=== PATIENT | female | born 1965 | race Caucasian/White ===

== ENCOUNTER → 2017-07-14 | Outpatient (CLI) | payer MEDICAID ==
[~2017-07-14] MED LIST: ACCUNEB SO1.25 MG/1 INH; ATIVAN1 MG PO; AZITHROMYCIN 2250 MG PO; FLOMAX0.4 MG PO; HYDROCODON-ACE1 EAC7 PO; HYDROCODONE-AP1 EAC6 PO; IBUPROFEN 400400 M2 PO; IBUPROFEN 800800 M1 PO; INVEGA 3 MG3 MG PO; LEVAQUIN 500 M500 MG PO; LOTRISONE CREAM15 GM TP; MEDROLDOSEPACK PO; NEURONTIN 300300 M1 PO; PALIPERIDONE E1.5 MG; PROAIR HFA8.5 GM INH; PROMETHAZINE/C118 ML PO; ROBAXIN 750 MG750 M1 PO; ROBAXIN500 MG PO; ROPINIROLE HCL2 MG; VISTARIL 25 MG25 M1 PO; ZOFRAN ODT4 M1 PO; ZPAK PO
== END ==
LOC: M.RAD 06-19 10:40 → M.ULTRA 07-08 09:00 → M.RAD 09:58
DX: N60.22 Fibroadenosis of left breast (principal)

== ENCOUNTER 2018-02-01 18:44 | Emergency (ER) | payer MEDICAID ==
[~2018-02-01] VITALS: Ht 157.5 cm; Wt 61.2 kg
[~2018-02-01 18:44] MED LIST changes: -INVEGA 3 MG3 MG PO; -PALIPERIDONE E1.5 MG; -ROBAXIN 750 MG750 M1 PO; -ROBAXIN500 MG PO; -ROPINIROLE HCL2 MG
[2018-02-01] MEDS ORDERED: PALIPERIDONE E1.5 MG (19:00)
[2018-02-01] MEDS ORDERED: ROPINIROLE HCL2 MG (19:01)
[2018-02-01] MEDS ORDERED: ROBAXIN500 MG PO (20:01)
[2018-02-01 20:09] VITALS: BP 141/61
== END 2018-02-01 20:11 | disposition home or self-care (01) ==
LOC: M.ERS 18:44
DX: S16.1XXA Strain of muscle, fascia and tendon at neck level, initial encounter (principal); J44.9 Chronic obstructive pulmonary disease, unspecified; E78.00 Pure hypercholesterolemia, unspecified; F41.9 Anxiety disorder, unspecified; Z88.0 Allergy status to penicillin; Z88.8 Allergy status to other drugs, medicaments and biological substances; X58.XXXA Exposure to other specified factors, initial encounter; Y93.89 Activity, other specified; Y92.89 Other specified places as the place of occurrence of the external cause; Y99.8 Other external cause status

== ENCOUNTER 2018-02-21 15:21 | Emergency (ER) | payer MEDICAID ==
[~2018-02-21] VITALS: Ht 157.5 cm; Wt 68.0 kg
[~2018-02-21 15:21] MED LIST changes: +PALIPERIDONE E1.5 MG; +ROBAXIN500 MG PO; +ROPINIROLE HCL2 MG
[2018-02-21] MEDS ORDERED: INVEGA 3 MG3 MG PO (16:27)
[2018-02-21] MEDS ORDERED: ROBAXIN 750 MG750 M1 PO (16:27)
[2018-02-21 16:59] VITALS: BP 144/92
== END 2018-02-21 16:59 | disposition home or self-care (01) ==
LOC: M.ERS 15:21
DX: S29.012A Strain of muscle and tendon of back wall of thorax, initial encounter (principal); Z76.0 Encounter for issue of repeat prescription; F17.200 Nicotine dependence, unspecified, uncomplicated; F31.9 Bipolar disorder, unspecified; F41.9 Anxiety disorder, unspecified; E78.00 Pure hypercholesterolemia, unspecified; J44.9 Chronic obstructive pulmonary disease, unspecified; Z88.4 Allergy status to anesthetic agent; Z88.8 Allergy status to other drugs, medicaments and biological substances; Z88.0 Allergy status to penicillin; Z90.89 Acquired absence of other organs; X58.XXXA Exposure to other specified factors, initial encounter; Y92.89 Other specified places as the place of occurrence of the external cause; Y93.89 Activity, other specified; Y99.8 Other external cause status

== ENCOUNTER 2018-05-11 14:52 | Emergency (ER) | payer MEDICAID ==
[~2018-05-11] VITALS: Ht 157.5 cm; Wt 61.2 kg
[~2018-05-11 14:52] MED LIST changes: +INVEGA 3 MG3 MG PO; +ROBAXIN 750 MG750 M1 PO
[2018-05-11] MEDS ORDERED: TRAZODONE 150150 M1 PO (15:04)
[2018-05-11] MEDS ORDERED: KEFLEX500 M1 PO (15:26)
[2018-05-11 15:41] VITALS: BP 132/87
== END 2018-05-11 15:41 | disposition home or self-care (01) ==
LOC: M.ERS 14:52
DX: L02.01 Cutaneous abscess of face (principal); J44.9 Chronic obstructive pulmonary disease, unspecified; E78.00 Pure hypercholesterolemia, unspecified; F31.9 Bipolar disorder, unspecified; F41.9 Anxiety disorder, unspecified; Z88.0 Allergy status to penicillin; Z88.8 Allergy status to other drugs, medicaments and biological substances

== ENCOUNTER 2018-05-15 14:46 | Emergency (ER) | payer MEDICAID ==
[~2018-05-15] VITALS: Ht 157.5 cm; Wt 61.2 kg
[~2018-05-15 14:46] MED LIST changes: +KEFLEX500 M1 PO; +TRAZODONE 150150 M1 PO
[2018-05-15 14:53] VITALS: BP 120/73
[2018-05-15] MEDS ORDERED: BACTRIM DS TAB1 EACH PO (15:04)
== END 2018-05-15 15:15 | disposition home or self-care (01) ==
LOC: M.ERS 14:46
DX: L73.9 Follicular disorder, unspecified (principal); J44.9 Chronic obstructive pulmonary disease, unspecified; E78.00 Pure hypercholesterolemia, unspecified; F41.9 Anxiety disorder, unspecified; F31.9 Bipolar disorder, unspecified; Z98.890 Other specified postprocedural states; Z88.0 Allergy status to penicillin; Z88.8 Allergy status to other drugs, medicaments and biological substances

== ENCOUNTER 2018-09-26 14:35 | Emergency (ER) | payer MEDICAID ==
[~2018-09-26] VITALS: Ht 154.9 cm; Wt 60.8 kg
[~2018-09-26 14:35] MED LIST changes: +BACTRIM DS TAB1 EACH PO
[2018-09-26] MEDS ORDERED: ACETAMINOPHEN-1 EAC1 PO (15:36)
[2018-09-26] MEDS ORDERED: CLEOCIN HCL150 MG PO (15:36)
[2018-09-26 15:53] VITALS: BP 120/66
== END 2018-09-26 15:53 | disposition home or self-care (01) ==
LOC: M.ERS 14:35
DX: J34.0 Abscess, furuncle and carbuncle of nose (principal); J44.9 Chronic obstructive pulmonary disease, unspecified; E78.00 Pure hypercholesterolemia, unspecified; F41.9 Anxiety disorder, unspecified; F31.9 Bipolar disorder, unspecified; Z88.0 Allergy status to penicillin; Z88.8 Allergy status to other drugs, medicaments and biological substances

== ENCOUNTER → 2018-10-01 | Outpatient (CLI) | payer MEDICAID ==
[~2018-10-01] MED LIST changes: +ACETAMINOPHEN-1 EAC1 PO; +CLEOCIN HCL150 MG PO
== END ==
LOC: M.RAD 13:10
DX: Z12.31 Encounter for screening mammogram for malignant neoplasm of breast (principal)

== ENCOUNTER 2019-04-19 14:55 | Emergency (ER) | payer MEDICAID ==
[~2019-04-19] VITALS: Ht 160 cm; Wt 65.8 kg
[2019-04-19 15:08] VITALS: BP 113/49
[2019-04-19] MEDS ORDERED: KLONOPIN1 MG PO (15:23)
[2019-04-19] MEDS ORDERED: HYDROXYZINE HCL25 M2 PO (15:23)
== END 2019-04-19 15:20 | disposition left against medical advice (07) ==
LOC: M.ERS 14:55
DX: Z53.21 Procedure and treatment not carried out due to patient leaving prior to being seen by health care provider (principal)

== ENCOUNTER 2019-07-25 07:03 | Emergency (ER) | payer MEDICAID ==
[~2019-07-25] VITALS: Ht 157.5 cm; Wt 65.8 kg
--- NOTE | ~2019-07-25 | EKG ---
[place] [address] ELECTROCARDIOGRAM REPORT Name: DEBRATRUDY GUARDADOE Room: [facility]#: [id number] Admission: 07/25/19 Attend Phys: Discharge: 07/25/19 Date of : 63 Date of Service: 07/25/19708 Report #: [id number] THIS REPORT FOR: cc: Russell Tai, Marciano Mae MD ~ THIS REPORT FOR: //name// [facility] ED Test Date: 2019-07-25 Test Time: 07:09:10 Pat Name: TRUDY RICHARDSON Department: Room: Gender: F County Historian: [facility] : 1965 Requested By: Jl Natarajan Order Number: [id number] Reading MD: Measurements Intervals [place] Rate: 81 P: 54 W[place]: 130 QRS: 79 QRSD: 110 T: 51 QT: 399 QTc: 464 Interpretive Statements Sinus rhythm Consider left atrial enlargement Minimal ST depression, diffuse leads Baseline wander in lead(s) V2 No previous ECG available for comparison [email or web address] By: 8 8 Epiphany Epiphany, MD /EPI
--- NOTE | ~2019-07-25 | EKG ---
[place] [address] ELECTROCARDIOGRAM REPORT Name: DEBRATRUDY SHIVA Room: [facility]#: [id number] Admission: 07/25/19 Attend Phys: Discharge: 07/25/19 Date of : 63 Date of Service: 07/25/19 0709 Report #: [id number] THIS REPORT FOR: cc: Russell Tai, Marciano Mae MD ~ THIS REPORT FOR: //name// [facility] ED Test Date: 2019-07-25 Test Time: 07:09:10 Pat Name: TRUDY RICHARDSON Department: Room: Gender: F [employer] Associate: [facility] : 1965 Requested By: Jl Natarajan Order Number: [id number] MD: Measurements Intervals [place] Rate: 81 P: 54 [place]: 130 QRS: 79 QRSD: 110 T: 51 QT: 399 QTc: 464 Interpretive Statements Sinus rhythm Consider left atrial enlargement Minimal ST depression, diffuse leads Baseline wander in lead(s) V2 Compared to ECG 10/27/2015 15:32:44 ST (T wave) deviation now present [email or web address] By: 8 8 Epiphany Epiphany, /EPI
[~2019-07-25 07:03] MED LIST changes: +HYDROXYZINE HCL25 M2 PO; +KLONOPIN1 MG PO
[2019-07-25] MEDS ORDERED: BACLOFEN 10MG T10 MG PO (07:12)
[2019-07-25] MEDS ORDERED: LIPITOR 20 MG T20 M1 PO (07:12)
[2019-07-25] MEDS ORDERED: PROAIR HFA8.5 GM INH (07:12)
[2019-07-25 07:47] LABS: ABSOLUTE BASOPHILS 0.1 thou/uL (0.0-0.2); ABSOLUTE EOSINOPHILS 0.3 thou/uL (0.0-0.7); ABSOLUTE LYMPHOCYTES 2.6 thou/uL (0.8-5.3); ABSOLUTE MONOCYTES 0.8 thou/uL (0.0-1.2); ABSOLUTE NEUTROPHILS 4.8 thou/uL (1.6-8.1); BASOPHILS 1.1 %; EOSINOPHILS 3.5 %; HEMATOCRIT 44.3 % (37.0-47.0); HEMOGLOBIN 14.9 gm/dL (12.0-15.0); MCH 31.6 pg (26.0-34.0); MCHC 33.7 g/dL (28.0-37.0); MCV 93.6 fL (80.0-100.0); MONOCYTES 9.3 %; MPV 7.6 fl. (7.2-11.1); NUCLEATED RBCS 0 /100WBC; PLATELET COUNT* 306 thou/uL (150-400); POLYS 56.1 %; RBC 4.73 mil/uL (4.20-5.00); RDW-CV 14.8 % (10.5-14.5); WBC 8.6 thou/uL (4.0-11.0)
[2019-07-25 07:58] LABS: ANION GAP 7 mmol/L (7-16); APTT 25.8 Seconds (25.0-31.3); BUN 19 mg/dL (7-18); CALCIUM 9.3 mg/dL (8.5-10.1); CHLORIDE 106 mmol/L (98-107); CO2 29 mmol/L (21-32); CREATININE 0.8 mg/dL (0.6-1.3); GLUCOSE 64 mg/dL (70-99); POTASSIUM 3.7 mmol/L (3.5-5.1); SODIUM 142 mmol/L (136-145)
[2019-07-25 08:12] LABS: ALBUMIN 3.8 g/dL (3.4-5.0); ALKALINE PHOSPHATASE 102 U/L (46-116); CK-MB MASS < 0.5 ng/mL (<0.5-3.6); LIPASE 139 U/L (73-393); NT-PRO BRAIN NAT PEPTIDE 64 pg/mL (<300); SGOT 11 U/L (15-37); SGPT 23 U/L (30-65); TOTAL BILIRUBIN 0.2 mg/dL (<0.1-1.0); TOTAL PROTEIN 7.7 g/dL (6.4-8.2)
[2019-07-25 08:38] VITALS: BP 123/62
== END 2019-07-25 08:39 | disposition home or self-care (01) ==
LOC: M.ERS 07:03
PROVIDERS: Family Medicine
DX: R07.89 Other chest pain (principal); J44.9 Chronic obstructive pulmonary disease, unspecified; E78.00 Pure hypercholesterolemia, unspecified; Z88.0 Allergy status to penicillin; Z88.8 Allergy status to other drugs, medicaments and biological substances; Z90.89 Acquired absence of other organs

== ENCOUNTER 2020-02-04 19:54 | Emergency (ER) | payer MEDICAID ==
[~2020-02-04] VITALS: Ht 157.5 cm; Wt 72.6 kg
[~2020-02-04 19:54] MED LIST changes: +BACLOFEN 10MG T10 MG PO; +LIPITOR 20 MG T20 M1 PO
[2020-02-04] MEDS ORDERED: TESSALON PERLE100 M1 PO (20:55)
[2020-02-04] MEDS ORDERED: PREDNISONE50 MG PO (20:55)
[2020-02-04] MEDS ORDERED: ZPAK PO (20:55)
[2020-02-04] MEDS ORDERED: ADVAIR 100-501 EACH INH (20:55)
[2020-02-04 21:03] VITALS: BP 153/101
== END 2020-02-04 21:04 | disposition home or self-care (01) ==
LOC: M.ERS 19:54
DX: J44.9 Chronic obstructive pulmonary disease, unspecified (principal); E78.00 Pure hypercholesterolemia, unspecified; Z88.0 Allergy status to penicillin; Z88.8 Allergy status to other drugs, medicaments and biological substances; Z90.89 Acquired absence of other organs